=== PATIENT | female | born 1995 | race Two or more races ===

== ENCOUNTER 2018-04-22 06:54 | Emergency (ER) | payer MEDICAID ==
[~2018-04-22] VITALS: Ht 165.1 cm; Wt 107.5 kg
[2018-04-22 07:27] VITALS: BP 141/39; Ht 165.1 cm; Wt 107.5 kg
== END 2018-04-22 08:34 | disposition home or self-care (01) ==
LOC: ED 06:54
DX: J06.9 Acute upper respiratory infection, unspecified (principal); J45.909 Unspecified asthma, uncomplicated; Z86.2 Personal history of diseases of the blood and blood-forming organs and certain disorders involving the immune mechanism
CPT/HCPCS: Q0092

== ENCOUNTER 2018-07-10 06:37 | Emergency (ER) | payer MEDICAID ==
[~2018-07-10] VITALS: Ht 165.1 cm; Wt 101.6 kg
[2018-07-10 06:42] VITALS: Ht 165.1 cm; Wt 101.6 kg
[2018-07-10 08:25] VITALS: BP 152/84
== END 2018-07-10 08:25 | disposition home or self-care (01) ==
LOC: ED 06:37
DX: J20.9 Acute bronchitis, unspecified (principal); J45.909 Unspecified asthma, uncomplicated; Z86.2 Personal history of diseases of the blood and blood-forming organs and certain disorders involving the immune mechanism

== ENCOUNTER 2018-07-29 07:41 | Emergency (ER) | payer MEDICAID ==
[~2018-07-29] VITALS: Ht 165.1 cm; Wt 113.4 kg
[2018-07-29 07:55] VITALS: Ht 165.1 cm; Wt 113.4 kg
[2018-07-29 09:14] VITALS: BP 118/58
== END 2018-07-29 09:14 | disposition home or self-care (01) ==
LOC: ED 07:41
DX: S20.221A Contusion of right back wall of thorax, initial encounter (principal); M25.561 Pain in right knee; J45.909 Unspecified asthma, uncomplicated; Z86.2 Personal history of diseases of the blood and blood-forming organs and certain disorders involving the immune mechanism; W18.39XA Other fall on same level, initial encounter; Y93.89 Activity, other specified; Y92.89 Other specified places as the place of occurrence of the external cause; Y99.8 Other external cause status
CPT/HCPCS: 72072

== ENCOUNTER 2018-09-02 07:13 | Emergency (ER) | payer MEDICAID | END 2018-09-02 10:22 | disposition home or self-care (01) | LOC: ED 07:13 ==

== ENCOUNTER 2018-10-24 06:50 | Emergency (ER) | payer MEDICAID ==
[~2018-10-24] VITALS: Ht 165.1 cm; Wt 115.7 kg
[2018-10-24 06:58] VITALS: Ht 165.1 cm; Wt 115.7 kg
[2018-10-24 08:11] LABS: BASOPHIL % 0.4 % (0-2); PLATELET COUNT 211 x10^3mcL (130-400)
[2018-10-24 08:16] LABS: RED CELL DISTRIBUTION WIDTH 15.5 % (11.5-14.5)
[2018-10-24 08:47] LABS: UA SPECIFIC GRAVITY >=1.030 (1.005-1.035); microscopic required? YES; urine erythrocyte 3+ (NEGATIVE)
[2018-10-24 12:19] VITALS: BP 117/80
== END 2018-10-24 12:19 | disposition home or self-care (01) ==
LOC: ED 06:50
PROVIDERS: Emergency Medicine
DX: O20.0 Threatened abortion (principal); J45.909 Unspecified asthma, uncomplicated
CPT/HCPCS: 36415

== ENCOUNTER 2019-01-27 06:22 | Emergency (ER) | payer OTHER ==
[~2019-01-27] VITALS: Ht 165.1 cm; Wt 122.0 kg
[2019-01-27 06:28] VITALS: Ht 165.1 cm; Wt 122.0 kg
[2019-01-27 09:15] VITALS: BP 128/73
== END 2019-01-27 09:22 | disposition home or self-care (01) ==
LOC: ED 06:22
DX: J45.909 Unspecified asthma, uncomplicated (principal)
CPT/HCPCS: J7512; J7613; J7644

== ENCOUNTER 2019-04-12 09:00 | Emergency (ER) | payer OTHER ==
[~2019-04-12] VITALS: Ht 162.6 cm; Wt 125.6 kg
[2019-04-12 09:04] VITALS: Ht 162.6 cm; Wt 125.6 kg
[2019-04-12 12:41] VITALS: BP 111/70
== END 2019-04-12 12:41 | disposition home or self-care (01) ==
LOC: ED 09:00
DX: J45.909 Unspecified asthma, uncomplicated (principal)

== ENCOUNTER 2019-07-09 09:14 | Emergency (ER) | payer OTHER ==
[~2019-07-09] VITALS: Ht 162.6 cm; Wt 129.3 kg
[2019-07-09 09:33] VITALS: Ht 162.6 cm; Wt 129.3 kg
[2019-07-09 12:20] VITALS: BP 153/87
== END 2019-07-09 12:20 | disposition home or self-care (01) ==
LOC: ED 09:14
DX: J18.9 Pneumonia, unspecified organism (principal); J45.909 Unspecified asthma, uncomplicated
CPT/HCPCS: 87804; J0696; J7512

== ENCOUNTER 2019-08-28 21:01 | Emergency (ER) | payer OTHER, SELFPAY ==
[~2019-08-28] VITALS: Ht 162.6 cm; Wt 134.3 kg
[2019-08-28 21:09] VITALS: Ht 162.6 cm; Wt 134.3 kg
[2019-08-28 23:25] VITALS: BP 141/88
== END 2019-08-28 23:25 | disposition home or self-care (01) ==
LOC: ED 21:01
DX: R05 Cough (principal); J45.909 Unspecified asthma, uncomplicated; Z86.2 Personal history of diseases of the blood and blood-forming organs and certain disorders involving the immune mechanism
CPT/HCPCS: Q0092

== ENCOUNTER 2019-11-19 05:02 | Emergency (ER) | payer OTHER ==
[~2019-11-19] VITALS: Ht 165.1 cm; Wt 127.6 kg
[2019-11-19 05:09] VITALS: Ht 165.1 cm; Wt 127.6 kg
[2019-11-19 07:52] LABS: microscopic required? NO
[2019-11-19 08:30] VITALS: BP 117/73
[2019-11-19 09:21] LABS: UA SPECIFIC GRAVITY >=1.030 (1.005-1.035); urine erythrocyte NEGATIVE (NEGATIVE)
== END 2019-11-19 08:30 | disposition home or self-care (01) ==
LOC: ED 05:02
PROVIDERS: Emergency Medicine
DX: N39.0 Urinary tract infection, site not specified (principal); J45.909 Unspecified asthma, uncomplicated

== ENCOUNTER 2019-12-25 11:23 | Emergency (ER) | payer OTHER ==
[~2019-12-25] VITALS: Ht 162.6 cm; Wt 127.0 kg
[2019-12-25 11:25] VITALS: Ht 162.6 cm; Wt 127.0 kg
[2019-12-25 12:47] VITALS: BP 136/71
== END 2019-12-25 12:48 | disposition home or self-care (01) ==
LOC: ED 11:23
DX: N30.00 Acute cystitis without hematuria (principal); J45.909 Unspecified asthma, uncomplicated

== ENCOUNTER 2020-01-27 05:59 | Emergency (ER) | payer OTHER ==
[~2020-01-27] VITALS: Ht 162.6 cm; Wt 128.0 kg
[2020-01-27 06:06] VITALS: Ht 162.6 cm; Wt 128.0 kg
[2020-01-27 06:58] VITALS: BP 155/91
== END 2020-01-27 06:58 | disposition home or self-care (01) ==
LOC: ED 05:59
DX: N39.0 Urinary tract infection, site not specified (principal); J45.909 Unspecified asthma, uncomplicated

== ENCOUNTER 2020-02-17 12:49 | Emergency (ER) | payer OTHER ==
[~2020-02-17] VITALS: Ht 162.6 cm; Wt 127.0 kg
[2020-02-17 12:59] VITALS: BP 151/81; Ht 162.6 cm; Wt 127.0 kg
== END 2020-02-17 13:54 | disposition home or self-care (01) ==
LOC: ED 12:49
DX: N39.0 Urinary tract infection, site not specified (principal); N12 Tubulo-interstitial nephritis, not specified as acute or chronic; J45.909 Unspecified asthma, uncomplicated

== ENCOUNTER 2020-03-11 10:41 | Emergency (ER) | payer OTHER ==
[~2020-03-11] VITALS: Ht 162.6 cm; Wt 128.8 kg
[2020-03-11 11:08] VITALS: BP 118/76; Ht 162.6 cm; Wt 128.8 kg
== END 2020-03-11 13:03 | disposition home or self-care (01) ==
LOC: ED 10:41
DX: S83.92XA Sprain of unspecified site of left knee, initial encounter (principal); J45.909 Unspecified asthma, uncomplicated; F17.210 Nicotine dependence, cigarettes, uncomplicated; E66.01 Morbid (severe) obesity due to excess calories; Z68.42 Body mass index [BMI] 45.0-49.9, adult; X50.1XXA Overexertion from prolonged static or awkward postures, initial encounter; Y93.89 Activity, other specified; Y92.89 Other specified places as the place of occurrence of the external cause; Y99.8 Other external cause status
CPT/HCPCS: 99406